=== PATIENT | female | born 1970 | race American Indian/Alaskan Native ===

== ENCOUNTER 2020-05-10 10:30 | Outpatient (CLI) | payer MEDICAID ==
--- NOTE | 2020-05-10 12:45 | Mammography Report ---
BILATERAL DIAGNOSTIC MAMMOGRAM AND TARGETED LEFT BREAST ULTRASOUND INDICATION: Left breast palpable finding. COMPARISON: None currently available. The patient reports prior mammograms at an outside facility in these will be requested. FINDINGS: Breasts demonstrate heterogenously dense fibroglandular tissue. There is a triangular marke r which valentine the site of a left lateral breast palpable finding. Just deep to this marker is an ill- defined poorly defined irregular density. There is asymmetric trabecular and skin thickening within t he left breast, most pronounced anteriorly. Additionally, there are two groupings of calcification wi thin the left central breast which span up to 4.1 cm and 3.3 cm (two separate groups). No suspicious findings in the right breast. Initially, a right inferior breast asymmetry was suspected, however thi s does not persist on subsequent additional views. A targeted ultrasound of the left breast focused in the region of the palpable finding at the 3:00/4: 00 position shows an ill-defined hypoechoic area which is difficult to measure, but is estimated to s bullard approximately 5 cm. A discrete mass is not identified. Targeted ultrasound of the left axilla mir ws a lymph node with cortical thickening measuring up to 8 mm. IMPRESSION: Left breast palpable finding corresponds with ill-defined hypoechoic area noted sonographically. This is estimated to measure approximately 5 cm at the 3:00 to 4:00 position. An ultrasound-guided biopsy of this is recommended. Enlarged left axillary lymph node for which ultrasound-guided biopsy is recommended. There are two large groupings of calcifications within the left central breast. Comparison to prior o utside mammograms is recommended to assess stability. Stereotactic biopsy of these calcifications may be indicated based upon prior imaging. BI-RADS Category 4: Suspicious for Malignancy. A "normal" or negative report should not discourage follow up or biopsy of a clinically significant f inding. A written summary of these findings will be mailed to the patient. FURTHER INFORMATION: According to the [employer], yearly mammograms are recommend ed starting at age 40 and continuing as long as a woman is in good health. Breast MRI is recommended for women with an approximately 20-25% or greater lifetime risk of breast cancer, including women wi th a strong family history of breast or ovarian cancer and women who have been treated for Hodgkin's disease. Signer Name: Rolando Perez MD Signed: 05/10/2020 12:40 PM Workstation Name: [id number]
== END 2020-05-10 10:31 | disposition home or self-care (01) ==
LOC: MAMMO 10:30
PROVIDERS: ATTEND Obstetrics & Gynecology
DX: R92.1 Mammographic calcification found on diagnostic imaging of breast (principal); N63.20 Unspecified lump in the left breast, unspecified quadrant
CPT/HCPCS: 77066

== ENCOUNTER 2020-05-19 08:10 | Outpatient (CLI) | payer MEDICAID ==
--- NOTE | 2020-05-19 09:56 | Mammography Report ---
ULTRASOUND GUIDED LEFT BREAST AND AXILLARY LYMPH NODE BIOPSY, 05/19/2020 DIAGNOSTIC MAMMOGRAM OF THE LEFT BREAST CLINICAL INFORMATION / INDICATION: POST US BX. History of vague left breast density and also abnormal appearing left axillary lymph node, here for biopsy at each site COMPARISON: Mammogram and ultrasound from 05/10/2020 PROCEDURE: Risks, benefits, and indications to the procedure were discussed with the patient in detail, includin g bleeding, infection, hematoma formation, and inadequate tissue sampling. The patient agreed to proc eed with both verbal and written consent. A timeout procedure was performed with two patient identifi ers. The breast was prepped and draped in the usual sterile fashion. Lidocaine 1% was used for local anest hesia. Under direct ultrasound guidance, 3 separate 14-gauge core samples were obtained of the left b reast. A biopsy marker was then placed. Biopsy device was removed and hemostasis achieved with manua l pressure. A sterile dressing was applied to the skin. Next, again under direct ultrasound guidance, 3 separate 18-gauge core samples were obtained of the l eft axillary lymph node. A biopsy marker was then placed. Biopsy device was removed and hemostasis a chieved with manual pressure. A sterile dressing was applied to the skin. The patient tolerated the procedures well without difficulty. No complications were encountered. Postbiopsy instructions were discussed with the patient and given in writing. Specimens were sent to pathology. IMPRESSION: 1. Technically successful ultrasound guided left breast and axillary lymph node breast biopsies. 2. Satisfactory clip placement within the left breast and the left axillary lymph node. Biopsy results are pending and will be reported in an addendum. Signer Name: Cheikh Iverson MD Signed: 05/19/2020 9:52 AM Workstation Name: [id number]
--- NOTE | 2020-05-19 10:10 | Ultrasound Report ---
ULTRASOUND GUIDED LEFT BREAST AND AXILLARY LYMPH NODE BIOPSY, 05/19/2020 DIAGNOSTIC MAMMOGRAM OF THE LEFT BREAST CLINICAL INFORMATION / INDICATION: LT BREAST MASS AND SUSP LYMPH NODE. History of vague left breast d ensity and also abnormal appearing left axillary lymph node, here for biopsy at each site COMPARISON: Mammogram and ultrasound from 05/10/2020 PROCEDURE: Risks, benefits, and indications to the procedure were discussed with the patient in detail, includin g bleeding, infection, hematoma formation, and inadequate tissue sampling. The patient agreed to proc eed with both verbal and written consent. A timeout procedure was performed with two patient identifi ers. The breast was prepped and draped in the usual sterile fashion. Lidocaine 1% was used for local anest hesia. Under direct ultrasound guidance, 3 separate 14-gauge core samples were obtained of the left b reast. A biopsy marker was then placed. Biopsy device was removed and hemostasis achieved with manua l pressure. A sterile dressing was applied to the skin. Next, again under direct ultrasound guidance, 3 separate 18-gauge core samples were obtained of the l eft axillary lymph node. A biopsy marker was then placed. Biopsy device was removed and hemostasis a chieved with manual pressure. A sterile dressing was applied to the skin. The patient tolerated the procedures well without difficulty. No complications were encountered. Postbiopsy instructions were discussed with the patient and given in writing. Specimens were sent to pathology. IMPRESSION: 1. Technically successful ultrasound guided left breast and axillary lymph node breast biopsies. 2. Satisfactory clip placement within the left breast and the left axillary lymph node. Biopsy results are pending and will be reported in an addendum. Signer Name: Cheikh Iverson MD Signed: 05/19/2020 10:05 AM Workstation Name: [id number]
== END 2020-05-19 08:11 | disposition home or self-care (01) ==
LOC: US 08:10
PROVIDERS: ATTEND Obstetrics & Gynecology
DX: N63.23 Unspecified lump in the left breast, lower outer quadrant (principal); I89.8 Other specified noninfective disorders of lymphatic vessels and lymph nodes; C77.3 Secondary and unspecified malignant neoplasm of axilla and upper limb lymph nodes; R92.8 Other abnormal and inconclusive findings on diagnostic imaging of breast
CPT/HCPCS: 38505; 76942; 88305

== ENCOUNTER 2021-01-20 11:24 | Emergency (ER) | payer MEDICAID ==
--- NOTE | 2021-01-20 11:52 | Event Note ---
ED Screening Note Date of service: 01/20/21 Time: 11:52 ED Screening Note: Patient complains of incision site from surgery bleeding on her left breast Also admits to SI without plan This initial assessment/diagnostic orders/clinical plan/treatment(s) is/are subject to change based on patients health status, clinical progression and re- assessment by fellow clinical providers in the ED. Further treatment and workup at subsequent clinical providers discretion. Patient/guardian urged not to elope from the ED as their condition may be serious if not clinically assessed and managed. Initial orders include: Further evaluation in Main ED
--- NOTE | 2021-01-20 16:48 | Emergency Department Report ---
HPI - General Chief Complaint: Wound/Laceration Time Seen by Provider: 01/20/21 11:51 - HPI HPI: Room 25 The patient is a 50-year-old female present with a chief complaint of "bleeding" from surgical site. The patient states yesterday during horseplay accidentally fell to the ground when she received help getting up she believes she may have pulled something in her left breast surgical site. Patient states she did notice anything immediately but later in the day she felt something wet in the left axilla which she checked his head to look like she was bleeding. The patient states she contacted her surgeon for her recent mastectomy at [facility] and was told to apply pressure. Patient applied pressure but there is no change and she was subsequently instructed to go to an urgent care facility. Patient went to urgent care facility and was told that there is not anything they could do for her and that she needed to come to the emergency department. Patient subsequently came to the ED. ED Past Medical Hx - Past Medical History Hx Deep Vein Thrombosis: Yes (right popliteal thromobsis) - Surgical History Additional Surgical History: HYSTO/ L SIDE MASTCTOMY - Family History Family history: no significant - Social History Smoking Status: Never Smoker Substance Use Type: None (Denies illicit drug use), Alcohol (Occasional) ED Review of Systems ROS: Stated complaint: BLEEDING FROM SURGERY AREA AFTER FALLING Other details as noted in HPI Constitutional: no symptoms reported Eyes: denies: eye pain ENT: denies: throat pain Respiratory: no symptoms reported Cardiovascular: denies: chest pain Endocrine: no symptoms reported Gastrointestinal: denies: abdominal pain Genitourinary: denies: dysuria Musculoskeletal: denies: back pain Neurological: denies: headache Hematological/Lymphatic: other (Bleeding from surgical site) Physical Exam - Physical Exam Vital Signs: Vital Signs 01/20/21 01/20/21 01/20/21 11:47 16:09 16:12 Temperature 98.3 F 98.2 F Pulse Rate 85 74 Respiratory 20 18 18 Rate Blood Pressure 132/85 Blood Pressure 132/86 [Right] O2 Sat by Pulse 98 100 100 Oximetry Physical Exam: GENERAL: The patient is well-developed well-nourished female lying on stretcher not appearing to be in acute distress. [] HEENT: Normocephalic. Atraumatic. Extraocular motions are intact. Patient has moist mucous membranes. NECK: Supple. Trachea midline CHEST/LUNGS: There is no respiratory distress noted. ABDOMEN: There is no abdominal distention. SKIN: There is a small opening feel lateral aspect of the superior surgical site where I am able to express a small amount of serosanguineous fluid. There is no active bleeding. The dressing that was covering the site had evidence of dried serosanguineous fluid but no jennifer blood NEURO: The patient is awake, alert, and oriented. The patient is cooperative. The patient has no focal neurologic deficits. The patient has normal speech. GCS 15 MUSCULOSKELETAL: There is no evidence of acute injury. ED Course Vital Signs 01/20/21 01/20/21 01/20/21 11:47 16:09 16:12 Temperature 98.3 F 98.2 F Pulse Rate 85 74 Respiratory 20 18 18 Rate Blood Pressure 132/85 Blood Pressure 132/86 [Right] O2 Sat by Pulse 98 100 100 Oximetry ED Medical Decision Making - Lab Data Result diagrams: 01/20/21 16:44 Laboratory Tests 01/20/21 01/20/21 16:44 16:44 WBC 5.5 RBC 3.59 L Hgb 11.2 Hct 33.0 MCV 92 MCH 31 MCHC 34 RDW 16.3 H Plt Count 346 Lymph % (Auto) 31.8 [place] % (Auto) 10.2 H Eos % (Auto) 1.3 Baso % (Auto) 0.4 Lymph # (Auto) 1.8 [place] # (Auto) 0.6 Eos # (Auto) 0.1 Baso # (Auto) 0.0 Seg Neutrophils % 56.3 Seg Neutrophils # 3.1 PT 15.5 H INR 1.17 H APTT 33.3 - Differential Diagnosis Wound dehiscence, postop bleeding Critical care attestation.: If time is entered above; I have spent that time in minutes in the direct care of this critically ill patient, excluding procedure time. ED Disposition Clinical Impression: Wound dehiscence Disposition: DC-01 TO HOME OR SELFCARE Is pt being admited?: No Does the pt Need Aspirin: No Condition: Stable Instructions: Wound Dehiscence, [id number] Additional Instructions: OUTPATIENT MENTAL HEALTH RESOURCES [facility], [facility] Michelle Juan C ZUNIGA: [address], [address] [place] [address] [place] [address] [facility]: [employer] [address] [place] [address] [place] [address] [phone] [facility]: [facility]: [address] [place] [address] [facility] [id number] [facility]: Jovany Anthony MD: [address] [facility] [address] [facility] [id number] [facility]: [address] [facility] [place] [address] [phone] [place] CRISIS AND ACCESS LINE: Referrals: PRIMARY CAREMD [Primary Care Provider] - [facility] (Please follow-up with your surgeon for reevaluation) Time of Disposition: 18:03
[2021-01-20 17:00] LABS: Basophils % (Auto) 0.4 % (0.0-1.8); Eosinophils # (Auto) 0.1 K/mm3 (0.0-0.4); Eosinophils % (Auto) 1.3 % (0.0-4.3); Hemoglobin 11.2 gm/dl (10.1-14.3); Lymphocytes # (Auto) 1.8 K/mm3 (1.2-5.4); Lymphocytes % (Auto) 31.8 % (13.4-35.0); Mean Corpuscular HGB Conc 34 % (30-34); Mean Corpuscular Volume 92 fl (79-97); Monocytes # (Auto) 0.6 K/mm3 (0.0-0.8); Monocytes % (Auto) 10.2 % (0.0-7.3); Platelet Count 346 K/mm3 (140-440); Red Blood Count 3.59 M/mm3 (3.65-5.03); Red Cell Distribution Width 16.3 % (13.2-15.2)
[2021-01-20 17:09] LABS: INR 1.17 (0.87-1.13)
[2021-01-20 17:10] LABS: Partial Thromboplastin Time 33.3 Sec. (24.2-36.6)
[2021-01-20 18:30] VITALS: BP 145/86
== END 2021-01-20 18:30 | disposition home or self-care (01) ==
LOC: ED 11:24
DX: T81.31XA Disruption of external operation (surgical) wound, not elsewhere classified, initial encounter (principal); R79.1 Abnormal coagulation profile; Y84.8 Other medical procedures as the cause of abnormal reaction of the patient, or of later complication, without mention of misadventure at the time of the procedure
CPT/HCPCS: 36415; 85025; 85610; 85730; 99284